=== PATIENT | male | born 1945 | race Caucasian/White ===

== ENCOUNTER 2018-12-31 21:55 | Emergency (ER) | payer MEDICARE, MEDICAID ==
[2018-12-31] MEDS ORDERED: Morphine 4 MG/ML VIAL (1 ml) 4 MG/ML VIAL IV ONE (22:24)
[2018-12-31] MEDS ORDERED: NS 0.9% 1000 ML** 1,000 ML IV ONE (22:24)
[2018-12-31] MEDS ORDERED: Ondansetron INJ* 2 MG/ML VIAL IV ONE (22:25)
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
[2018-12-31 22:48] LABS: ABS Basophils 0.1 10^3/ul (0-0.2); ABS Eosinophils 0.2 10^3/ul (0-0.6); ABS Lymphocytes 2.3 10^3/ul (1.0-4.8); ABS Monocytes 0.9 10^3/ul (0-0.8); ABS Neutrophils 9.2 10^3/ul (1.5-7.7); Eosinophil % 1.7 %; Hematocrit 46 % (42-52); Hemoglobin 15.4 g/dL (14.0-18.0); Lymphocyte % 18.3 %; Mean Corpuscular HGB Conc 34 g/dL (31-36); Mean Corpuscular Hemoglobin 31 pg (27-31); Mean Corpuscular Volume 91 fL (80-94); Mean Platelet Volume 8.9 fL (7.4-10.4); Nucleated Red Blood Cells % 0.1; Platelet Count 304 10^3/uL (150-450); Red Blood Count 5.05 10^6 /uL (4.18-5.48); Red Cell Distribution Width 14 % (10-15); White Blood Count 12.7 10^3/uL (3.5-10.8)
[2018-12-31 22:53] LABS: INR 0.9 (0.82-1.09)
[2018-12-31 23:04] LABS: Albumin 4.4 g/dL (3.2-5.2); Albumin/Globulin Ratio 1.5 (1-3); BUN/Creatinine Ratio 23.7 (8-20); Calcium 10.2 mg/dL (8.6-10.3); EGFR African American 72.8 (>60); EGFR Non-African American 60.2 (>60); Potassium 3.6 mmol/L (3.5-5.0); Total Bilirubin 0.4 mg/dL (0.2-1.0); Total Protein 7.4 g/dL (6.4-8.9)
[2018-12-31] MEDS ORDERED: Silver Sulfadiazine 1%* 20 GM TOPICAL ONE (23:22)
[2018-12-31] MEDS ORDERED: Bacitracin OINTMENT* 0.5% 0.5 oz TUBE TOPICAL ONE (23:23)
[2018-12-31 23:58] VITALS: BP 167/94
== END 2018-12-31 23:56 | disposition home or self-care (01) ==
LOC: ED 21:55
DX: T24.201A Burn of second degree of unspecified site of right lower limb, except ankle and foot, initial encounter (principal); T31.0 Burns involving less than 10% of body surface; X11.8XXA Contact with other hot tap-water, initial encounter; Y92.9 Unspecified place or not applicable; E03.9 Hypothyroidism, unspecified; I10 Essential (primary) hypertension; F17.200 Nicotine dependence, unspecified, uncomplicated; Z79.890 Hormone replacement therapy; Z79.899 Other long term (current) drug therapy
CPT/HCPCS: 16025; 36415; 80053; 83605; 85025; 85610; 96361; 96374; 96375; 99282; A9270-GY; J2270; J2405

== ENCOUNTER 2019-01-04 17:11 | Emergency (ER) | payer MEDICARE, MEDICAID ==
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
[2019-01-04] MEDS: NS 0.9% 1000 ML** 1,000 ML IV.FLUID IV ONE (18:32)
[2019-01-04 18:54] LABS: Hematocrit 48 % (42-52); Hemoglobin 16.4 g/dL (14.0-18.0); Mean Corpuscular HGB Conc 34 g/dL (31-36); Mean Corpuscular Hemoglobin 31 pg (27-31); Mean Corpuscular Volume 91 fL (80-94); Red Blood Count 5.23 10^6 /uL (4.18-5.48); Red Cell Distribution Width 13 % (10-15); White Blood Count 11.3 10^3/uL (3.5-10.8)
[2019-01-04 18:55] LABS: Activated Partial Thrombo Time 36.1 seconds (26.0-38.0); INR 0.97 (0.82-1.09)
[2019-01-04 19:03] LABS: Albumin 4.4 g/dL (3.2-5.2); Albumin/Globulin Ratio 1.3 (1-3); BUN/Creatinine Ratio 25.5 (8-20); Calcium 9.8 mg/dL (8.6-10.3); EGFR African American 90.2 (>60); EGFR Non-African American 74.6 (>60); Globulin 3.4 g/dL (2-4); Potassium 3.5 mmol/L (3.5-5.0); Total Bilirubin 0.5 mg/dL (0.2-1.0); Total Protein 7.8 g/dL (6.4-8.9)
[2019-01-04] MEDS: Vancomycin(*) 1,250 MG in NS 0.9% 250 ML* 250 ML IVPB ONE (19:09)
[2019-01-04 19:17] LABS: ABS Basophils 0.1 10^3/ul (0-0.2); ABS Eosinophils 0.1 10^3/ul (0-0.6); ABS Lymphocytes 2.1 10^3/ul (1.0-4.8); ABS Monocytes 0.8 10^3/ul (0-0.8); ABS Neutrophils 8.2 10^3/ul (1.5-7.7); Eosinophil % 0.8 %; Lymphocyte % 18.8 %; Nucleated Red Blood Cells % 0.2
[2019-01-04 19:38] LABS: Mean Platelet Volume 9.6 fL (7.4-10.4); Platelet Count 246 10^3/uL (150-450)
[2019-01-04] MEDS: oxyCODONE/Acetamin 5/325 MG* TAB PO ONE (19:57)
--- NOTE | 2019-01-04 20:45 | ED ---
Skin Complaint - HPI Summary HPI Summary: 73 year old male presents with burn on right leg for the past couple days. He was seen here on Wednesday for the burn and told place Silvadene on area. He has been placing Silvadene on the area. Was seen at primary today and was sent here. Did have a low-grade fever. Denies any states one of the blisters popped today and had some pus like drainage from the area. States the redness hasn't spread but daughter states that it is little more intense on the leg. No history of MRSA. Is not diabetic. - History of Current Complaint Chief Complaint: EDBurnSmokeInh Time Seen by Provider: 01/04/19 18:10 Stated Complaint: INFECTED BURN PER PT Pain Intensity: 6 - Allergy/Home Medications Allergies/Adverse Reactions: Allergies Allergy/AdvReac Type Severity Reaction Status Date / Time No Known Allergies Allergy Verified 12/31/18 22:13 Home Medications: Home Medications Losartan TAB* [Cozaar TAB*] 100 mg PO DAILY 01/04/19 [History Confirmed 01/04/19 ] Potassium Chloride [Klor-Con M20] 20 meq PO DAILY 01/04/19 [History Confirmed ] PMH/Surg Hx/FS Hx/Imm Hx Endocrine/Hematology History: Reports: Hx Thyroid Disease - Hypothyroidism Denies: Hx Anticoagulant Therapy Cardiovascular History: Reports: Hx Hypertension Musculoskeletal History: Reports: 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, Other Musculoskeletal History - Psoriasis Sensory History: Denies: Hx Legally Blind, Hx Deafness Opthamlomology History: Denies: Hx Legally Blind - Surgical History Surgery Procedure, Year, and Place: Appendectomy - Immunization History Date of Tetanus Vaccine: summer 2018 Date of Influenza Vaccine: none Infectious Disease History: No Infectious Disease History: Denies: Traveled Outside the [place] in Last 30 Days - Family History Known Family History: Negative: Hypertension, Diabetes - Social History Alcohol Use: Rare Hx Substance Use: Yes Substance Use Type: Reports: Marijuana Substance Use Comment - Amount & Last Used: occasionally Hx Tobacco Use: Yes Smoking Status (MU): Light Every Day Tobacco Smoker Review of Systems Positive: Fever Negative: Chest Pain Negative: Shortness Of Breath Positive: Rash All Other Systems Reviewed And Are Negative: Yes Physical Exam Triage Information Reviewed: Yes Vital Signs On Initial Exam: Initial Vitals Temp Pulse Resp BP Pulse Ox 100.9 F 102 19 160/103 98 01/04/19 17:17 01/04/19 17:17 01/04/19 17:17 01/04/19 17:17 01/04/19 17:17 Vital Signs Reviewed: Yes Appearance: Positive: Well-Appearing Skin: Positive: Warm, Dry, Other - 6cm by 4cm area of erythema with serous fluid on top of foot, serous blister present on side of ankle and lower leg, erythema up to right knee that is warm to touch, no streaking Head/Face: Positive: Normal Head/Face Inspection Eyes: Positive: Normal, Conjunctiva Clear ENT: Positive: Pharynx normal Respiratory/Lung Sounds: Positive: Clear to Auscultation, Breath Sounds Present Cardiovascular: Positive: Normal, RRR Musculoskeletal: Positive: Normal Neurological: Positive: Normal Psychiatric: Positive: Normal Procedures - Sedation Patient Received Moderate/Deep Sedation with Procedure: No Diagnostics - Vital Signs Vital Signs Temp Pulse Resp BP Pulse Ox 01/04/19 20:05 95 152/111 97 01/04/19 20:00 89 96 01/04/19 19:57 16 01/04/19 19:34 84 153/90 96 01/04/19 19:05 80 154/89 96 01/04/19 19:00 85 95 01/04/19 18:34 85 160/90 96 01/04/19 18:06 83 97 01/04/19 18:05 89 153/97 98 01/04/19 17:17 100.9 F 102 19 160/103 98 - Laboratory Lab Results: Lab Results 01/04/19 01/04/19 01/04/19 Range/Units 18:37 18:37 18:37 WBC 11.3 H (3.5-10.8) 10^3/uL RBC 5.23 (4.18-5.48) 10^6 /uL Hgb 16.4 (14.0-18.0) g/dL Hct 48 (42-52) % MCV 91 (80-94) fL MCH 31 (27-31) pg MCHC 34 (31-36) g/dL RDW 13 (10-15) % Plt Count 246 (150-450) 10^3/uL MPV 9.6 (7.4-10.4) fL Neut % (Auto) 72.4 % Lymph % (Auto) 18.8 % Grant % (Auto) 7.5 % Eos % (Auto) 0.8 % Baso % (Auto) 0.5 % Absolute Neuts (auto) 8.2 H (1.5-7.7) 10^3/ul Absolute Lymphs (auto) 2.1 (1.0-4.8) 10^3/ul Absolute Monos (auto) 0.8 (0-0.8) 10^3/ul Absolute Eos (auto) 0.1 (0-0.6) 10^3/ul Absolute Basos (auto) 0.1 (0-0.2) 10^3/ul Absolute Nucleated RBC 0.0 10^3/ul Nucleated RBC % 0.2 INR (Anticoag Therapy) 0.97 (0.82-1.09) APTT 36.1 (26.0-38.0) seconds Sodium 139 (135-145) mmol/L Potassium 3.5 (3.5-5.0) mmol/L Chloride 103 (101-111) mmol/L Carbon Dioxide 25 (22-32) mmol/L Anion Gap 11 (2-11) mmol/L BUN 25 H (6-24) mg/dL Creatinine 0.98 (0.67-1.17) mg/dL Est GFR ( Amer) 90.2 (>60) Est GFR (Non-Af Amer) 74.6 (>60) BUN/Creatinine Ratio 25.5 H (8-20) Glucose 107 H (70-100) mg/dL Lactic Acid (0.5-2.0) mmol/L Calcium 9.8 (8.6-10.3) mg/dL Total Bilirubin 0.50 (0.2-1.0) mg/dL AST 17 (13-39) U/L ALT 17 (7-52) U/L Alkaline Phosphatase 57 (34-104) U/L B-Natriuretic Peptide (<=100) pg/mL Total Protein 7.8 (6.4-8.9) g/dL Albumin 4.4 (3.2-5.2) g/dL Globulin 3.4 (2-4) g/dL Albumin/Globulin Ratio 1.3 (1-3) 11/13/19 11/13/19 Range/Units 18:53 18:53 WBC (3.5-10.8) 10^3/uL RBC (4.18-5.48) 10^6 /uL Hgb (14.0-18.0) g/dL Hct (42-52) % MCV (80-94) fL MCH (27-31) pg MCHC (31-36) g/dL RDW (10-15) % Plt Count (150-450) 10^3/uL MPV (7.4-10.4) fL Neut % (Auto) % Lymph % (Auto) % Grant % (Auto) % Eos % (Auto) % Baso % (Auto) % Absolute Neuts (auto) (1.5-7.7) 10^3/ul Absolute Lymphs (auto) (1.0-4.8) 10^3/ul Absolute Monos (auto) (0-0.8) 10^3/ul Absolute Eos (auto) (0-0.6) 10^3/ul Absolute Basos (auto) (0-0.2) 10^3/ul Absolute Nucleated RBC 10^3/ul Nucleated RBC % INR (Anticoag Therapy) (0.82-1.09) APTT (26.0-38.0) seconds Sodium (135-145) mmol/L Potassium (3.5-5.0) mmol/L Chloride (101-111) mmol/L Carbon Dioxide (22-32) mmol/L Anion Gap (2-11) mmol/L BUN (6-24) mg/dL Creatinine (0.67-1.17) mg/dL Est GFR ( Amer) (>60) Est GFR (Non-Af Amer) (>60) BUN/Creatinine Ratio (8-20) Glucose (70-100) mg/dL Lactic Acid 1.3 (0.5-2.0) mmol/L Calcium (8.6-10.3) mg/dL Total Bilirubin (0.2-1.0) mg/dL AST (13-39) U/L ALT (7-52) U/L Alkaline Phosphatase (34-104) U/L B-Natriuretic Peptide 32 (<=100) pg/mL Total Protein (6.4-8.9) g/dL Albumin (3.2-5.2) g/dL Globulin (2-4) g/dL Albumin/Globulin Ratio (1-3) Result Diagrams: 01/04/19 18:37 01/04/19 18:37 Lab Statement: Any lab studies that have been ordered have been reviewed, and results considered in the medical decision making process. Course/Dx - Course Course Of Treatment: 73 year old male presents with burn on right leg for the past couple days. He was seen here on Wednesday for the burn and told place Silvadene on area. He has been placing Silvadene on the area. Was seen at primary today and was sent here. Did have a low-grade fever. Denies any states one of the blisters popped today and had some pus like drainage from the area. States the redness hasn't spread but daughter states that it is little more intense on the leg. No history of MRSA. Is not diabetic. On exam has fluid-filled blisters on right foot. Has erythema extending up to right knee. Patient says states that this was where the burn was. Has a low-grade fever and is tachycardic on initial evaluation. Was given fluids and vanco. White blood cell count was slightly elevated. Cultures taken from the blister that popped from some of the serous fluid. Patient is not tachycardic anymore after fluids. Discussed will try outpatient treatment with clindamycin. told follow- up wound clinic. Told if redness spreads or if develop fever to return. Patient understands agrees with plan. - Differential Diagnoses - Skin Complaint Differential Diagnoses: Cellulitis, Contact Dermatitis, Other - burn - Diagnoses Provider Diagnoses: Burn, Cellulitis Discharge ED - Sign-Out/Discharge Documenting (check all that apply): Patient Departure - Discharge Plan Condition: Stable Disposition: HOME Prescriptions: RX: Bacitracin OINTMENT* 1 applic TOPICAL BID #1 tube Clindamycin Cap(NF) [Clindamycin Cap 300 mg Cap(NF)] 300 mg PO TID #30 cap Silver Sulfadiazine 1% 400gm* [SILVadine 1% 400 gm jar*] 1 applic TOPICAL DAILY #1 jar Patient Education Materials: Second Degree Burn (ED) Referrals: Otilio Bauer MD [Primary Care Provider] - Agustín Corea MD [Medical Doctor] - Additional Instructions: continue apply silvadene to the area daily, apply bacitracin to the red area on top of foot twice a day take clindamycin three times a day follow up with wound clinic follow up with primary within 2 days Return to ED if fevers continue, redness spreads or any new or worsening symptoms - Billing Disposition and Condition Condition: STABLE Disposition: Home
[2019-01-04] MEDS: Silver Sulfadiazine 1%* 20 GM TOPICAL ONE (21:19)
[2019-01-04] MEDS: Bacitracin OINTMENT* 0.5% 0.5 oz TUBE TOPICAL ONE (21:19)
[2019-01-04 22:05] VITALS: BP 149/92
== END 2019-01-04 21:33 | disposition home or self-care (01) ==
LOC: ED 17:11
DX: T25.0 Burn of unspecified degree of ankle and foot (principal); L03.115 Cellulitis of right lower limb; T79.8XXD Other early complications of trauma, subsequent encounter; X08.8XXD Exposure to other specified smoke, fire and flames, subsequent encounter; E03.9 Hypothyroidism, unspecified; I10 Essential (primary) hypertension; F17.200 Nicotine dependence, unspecified, uncomplicated; Z90.89 Acquired absence of other organs; Z79.899 Other long term (current) drug therapy
CPT/HCPCS: 36415; 80053; 83605; 83880; 85025; 85610; 85730; 87040; 87070; 87205; 96361; 96365; 96366; 99284; A9270-GY; J3370